=== PATIENT | male | born 1985 | race African-American/Black ===

== ENCOUNTER 2023-06-18 18:13 | Inpatient (IN) | payer OTHER, SELFPAY ==
[2023-06-18] MEDS ORDERED: Ondansetron PF 4 MG/2 ML Vial IVP PRN (21:08)
[2023-06-18] MEDS ORDERED: Labetalol HCl 100 MG/20 ML VIAL SLOW IVP PRN (21:08)
[2023-06-18] MEDS ORDERED: Fentanyl BOLUS 250 ML IVPB PRN (21:15)
[2023-06-18] MEDS ORDERED: Propofol BOLUS 1,000 MG/100 ML VIAL IV PRN (21:15)
[2023-06-18] MEDS ORDERED: Ventilator Sedation Protocol 1 EACH FS SCH (21:15)
[2023-06-18] MEDS ORDERED: DISCONTINUE PREVIOUS NARCOTIC PAIN MEDICATIONS AND BENZODIAZEPINES FS SCH (21:15)
[2023-06-18] MEDS ORDERED: Glucagon 1 MG/ML KIT IM PRN (21:18)
[2023-06-18] MEDS ORDERED: Dextrose 5% in Water 1,000 ML IV PRN (21:18)
[2023-06-18] MEDS ORDERED: HumaLOG 300 UNITS/3 ML VIAL SC PRN (21:18)
[2023-06-18] MEDS ORDERED: Dextrose 50% Abboject 50 ML SYRINGE SLOW IVP PRN (21:18)
[2023-06-18] MEDS ORDERED: hydrALAZINE 20 MG/ML VIAL SLOW IVP PRN (21:20)
[2023-06-18 21:35] LABS: Actual Bicarbonate (HCO3a) 18.3 mEq/L (22-28); Base Excess (BEa) -9.6 mEq/L (-2.0 to +3.0); CO2 Tension 47.3 mmHg (35.0-45.0); Calcium, Ionized (arterial) 1.15 mmol/L (1.12-1.30); Carboxyhemoglobin (COHb) 1.4 gm% (0.0-3.0); Hematocrit-ABG 44 % (42.0-52.0)
[2023-06-18 21:38] LABS: O2 Tension (PaO2), arterial 57.1 mmHg (80.0-100.0); pH, Arterial 7.206 (7.35-7.45)
[2023-06-18 21:39] LABS: Puncture Site RRA
[2023-06-18 21:41] LABS: ALV-art Gradient 596.775 mmHg (0-20)
[2023-06-18] MEDS ORDERED: Sodium Bicarb 50 MEQ/50 ML VIAL IVP SCH (21:45)
[2023-06-18] MEDS ORDERED: Lactated Ringer's 500 ML IV SCH (22:00)
[2023-06-18] MEDS ORDERED: Fentanyl CADD 100 ML ONE (22:07)
[2023-06-18 22:11] LABS: #Basophils 0.1 thou/uL (0.0-0.2); #Eosinphils 0.1 thou/uL (0.0-0.7); #Monocytes 1.2 thou/uL (0.11-0.59); #Neutrophils 11.1 thou/uL (1.40-6.50); %Basophils 0.4 % (0.0-1.0); %Eosinophils 0.5 % (0.0-10.0); %Monocytes 8.4 % (0.0-10.0); %Neutrophils 77.4 % (42.0-75.0); Hematocrit 42.9 % (42.0-52.0); Hemoglobin 13.9 g/dL (14.0-18.0); Mean Corpuscular HGB CONC 32.4 g/dL (32.0-36.0); Mean Corpuscular Hemoglobin 29.1 pg (27.0-31.0); Mean Corpuscular Volume 89.7 fl (78.0-98.0); Mean Platelet Volume 9.3 fL (7.4-10.4); Platelet Count 269 10x3/uL (130-400); Red Blood Cell (RBC) Count 4.78 mill/uL (4.70-6.10); White Blood Cell (WBC) Count 14.3 10x3/uL (4.8-10.8)
[2023-06-18] MEDS: Fentanyl CADD 100 ML IV SCH (22:19)
[2023-06-18] MEDS ORDERED: SODIUM BICARBONATE IV SCH (22:30)
[2023-06-18] MEDS ORDERED: STERILE WATER IV SCH (22:30)
[2023-06-18] MEDS ORDERED: Sodium Bicarbonate 50 MEQ in Sodium Chloride 0.45% 1,000 ML IV SCH (22:30)
[2023-06-18 22:33] LABS: Lactic Acid 4.5 mmol/L (0.5-2.2)
[2023-06-18 22:34] LABS: ALT (SGPT) 49 U/L (8-55); AST (SGOT) 74 U/L (5-34); Albumin 4.1 g/dL (3.5-5.0); Alkaline Phosphatase 76 U/L (40-110); Anion Gap 16 mmol/L (10-20); BUN (Urea Nitrogen) 28 mg/dL (8.9-20.6); Bilirubin, Total 0.3 mg/dL (0.2-1.2); Calc. Creatinine Clearance 56 mL/min (70-130); Calcium 8.7 mg/dL (7.8-10.44); Carbon Dioxide 23 mmol/L (22-29); Chloride 104 mmol/L (98-107); Estimated GFR 19; Globulin 3.6 g/dL (2.4-3.5); Glucose 135 mg/dL (70-105); Potassium 4.2 mmol/L (3.5-5.1); Protein, Total 7.7 g/dL (6.0-8.3); Sodium 139 mmol/L (136-145)
[2023-06-18 23:44] LABS: Actual Bicarbonate (HCO3a) 26.3 mEq/L (22-28); Base Excess (BEa) -0.4 mEq/L (-2.0 to +3.0); CO2 Tension 51.2 mmHg (35.0-45.0); Calcium, Ionized (arterial) 1.11 mmol/L (1.12-1.30); Hematocrit-ABG 42 % (42.0-52.0); Hemoglobin (Hb) 14.2 g/dL (14.0-18.0); O2 Tension (PaO2), arterial 90.9 mmHg (80.0-100.0); Potassium - ABG Lab 4.04 mmol/L (3.70-5.30); pH, Arterial 7.329 (7.35-7.45)
[2023-06-18 23:45] LABS: Puncture Site RRA
[2023-06-19] MEDS: niCARdipine 25 MG in Sodium Chloride 0.9% 250 ML 250 ML IVPB PRN ×4 (00:02→16:06)
[2023-06-19] MEDS: Propofol 1,000 MG/100 ML VIAL IV PRN ×9 (00:03→23:04)
[2023-06-19] MEDS ORDERED: Lactated Ringer's 1,000 ML IV SCH (01:00)
[2023-06-19] MEDS ORDERED: Cefepime 2 GM VIAL ONE (02:51)
[2023-06-19] MEDS ORDERED: Cefepime 2 GM in Sodium Chloride 0.9% 100 ML IVPB SCH (03:00)
[2023-06-19] MEDS ORDERED: VANCOMYCIN 2 GRAM/500 ML BAG 2 GM in Premix Bag 1 BAG IVPB SCH (03:00)
[2023-06-19] MEDS: Lactated Ringer's 1,000 ML IV SCH ×2 (03:17→08:37)
[2023-06-19 03:56] LABS: #Eosinphils 0.1 thou/uL (0.0-0.7); #Monocytes 0.7 thou/uL (0.11-0.59); #Neutrophils 7.6 thou/uL (1.40-6.50); %Basophils 0.2 % (0.0-1.0); %Eosinophils 0.5 % (0.0-10.0); %Lymphocytes 11.4 % (21.0-51.0); %Monocytes 7.7 % (0.0-10.0); %Neutrophils 79.6 % (42.0-75.0); Hematocrit 38.7 % (42.0-52.0); Hemoglobin 12.7 g/dL (14.0-18.0); Mean Corpuscular HGB CONC 32.8 g/dL (32.0-36.0); Mean Corpuscular Hemoglobin 29.2 pg (27.0-31.0); Mean Platelet Volume 9.3 fL (7.4-10.4); Platelet Count 234 10x3/uL (130-400); RBC Distribution Width 13.1 % (11.5-14.5); Red Blood Cell (RBC) Count 4.35 mill/uL (4.70-6.10); White Blood Cell (WBC) Count 9.6 10x3/uL (4.8-10.8)
[2023-06-19 07:25] LABS: Actual Bicarbonate (HCO3a) 23.9 mEq/L (22-28); Base Excess (BEa) -1.8 mEq/L (-2.0 to +3.0); CO2 Tension 43.8 mmHg (35.0-45.0); Calcium, Ionized (arterial) 1.07 mmol/L (1.12-1.30); Carboxyhemoglobin (COHb) 0.7 gm% (0.0-3.0); Hematocrit-ABG 41 % (42.0-52.0); Hemoglobin (Hb) 13.8 g/dL (14.0-18.0); O2 Tension (PaO2), arterial 74.1 mmHg (80.0-100.0); Potassium - ABG Lab 3.92 mmol/L (3.70-5.30); pH, Arterial 7.354 (7.35-7.45)
[2023-06-19 07:28] LABS: Puncture Site LRA
[2023-06-19 08:13] LABS: Anion Gap 20 mmol/L (10-20); BUN (Urea Nitrogen) 29 mg/dL (8.9-20.6); Calc. Creatinine Clearance 63 mL/min (70-130); Calcium 8.5 mg/dL (7.8-10.44); Carbon Dioxide 27 mmol/L (22-29); Chloride 100 mmol/L (98-107); Estimated GFR 22; Glucose 107 mg/dL (70-105); Lactic Acid 3.3 mmol/L (0.5-2.2); Magnesium 2.5 mg/dL (1.6-2.6); Sodium 143 mmol/L (136-145)
[2023-06-19] MEDS: levETIRAcetam 500 MG/5 ML VIAL SLOW IVP SCH ×2 (08:38→20:14)
[2023-06-19] MEDS: Famotidine/PF 20 mg/2ml Vial SLOW IVP SCH (08:38)
[2023-06-19] MEDS ORDERED: levETIRAcetam 500 MG TAB PO SCH (09:00)
[2023-06-19 09:27] LABS: Clarity Cloudy (Clear); Leukocyte Unable to Interpret Leu/uL (Negative); Nitrite Unable to Interpret (Negative); pH, Urine 5.2 (5.0-9.0)
[2023-06-19 09:28] LABS: Bilirubin Unable to Interpret (Negative); Blood, Urine Unable to Interpret (Negative); Glucose, Urine (Dipstick) Unable to Interpret mg/dL (Negative); Ketone, Urine Unable to Interpret mg/dL (Negative); Protein, Urine (Dipstick) Unable to Interpret mg/dL (Neg-Trace); Urobilinogen UNABLE TO INTERPRET mg/dL (Less than 2)
[2023-06-19 09:39] LABS: Bacteria/HPF Rare-Few HPF (None Seen); CAUTI Indications for Culture Alt mental st,lethar; RBC/HPF Greater than 50 HPF (0-3); Squamous Epithelial None Seen HPF (0-3)
[2023-06-19 09:40] LABS: Triple Phosphate Crystal Rare HPF (None Seen)
[2023-06-19 09:41] LABS: Urine Culture Reflex No No
[2023-06-19 10:36] LABS: Phosphorus 4.5 mg/dL (2.3-4.7)
[2023-06-19] MEDS ORDERED: Furosemide 40 MG/4 ML VIAL SLOW IVP SCH (10:45)
[2023-06-19] MEDS: Cefepime 1 GM in Sodium Chloride 0.9% 100 ML IVPB SCH (15:13)
[2023-06-19] MEDS: Lorazepam 2 MG/ML VIAL SLOW IVP PRN (16:03)
[2023-06-19] MEDS: Acetaminophen 325 MG TAB PO PRN ×2 (16:39→23:04)
[2023-06-19] MEDS: Fentanyl CADD 100 ML IV SCH (20:13)
[2023-06-19] MEDS ORDERED: niCARdipine 50 MG in Sodium Chloride 0.9% 250 ML 250 ML IVPB SCH (21:15)
[2023-06-19] MEDS ORDERED: niCARdipine 50 MG, Admixture Fee 1 EACH in Sodium Chloride 0.9% 250 ML 230 ML IV SCH (21:30)
[2023-06-19] MEDS: Labetalol HCl 100 MG/20 ML VIAL SLOW IVP PRN (22:50)
[2023-06-20] MEDS: Lorazepam 2 MG/ML VIAL SLOW IVP PRN ×5 (00:21→23:05)
[2023-06-20] MEDS: Labetalol HCl 100 MG/20 ML VIAL SLOW IVP PRN ×3 (02:23→11:35)
[2023-06-20] MEDS: Propofol 1,000 MG/100 ML VIAL IV PRN ×4 (02:24→22:20)
[2023-06-20] MEDS: Cefepime 1 GM in Sodium Chloride 0.9% 100 ML IVPB SCH ×2 (02:24→15:03)
[2023-06-20] MEDS: Vancomycin 1 GM in Premix Bag 1 BAG IVPB SCH (03:25)
[2023-06-20 04:24] LABS: #Eosinphils 0.1 thou/uL (0.0-0.7); #Monocytes 0.8 thou/uL (0.11-0.59); #Neutrophils 6.6 thou/uL (1.40-6.50); %Basophils 0.3 % (0.0-1.0); %Eosinophils 1.2 % (0.0-10.0); %Lymphocytes 20.5 % (21.0-51.0); %Neutrophils 69.6 % (42.0-75.0); Hemoglobin 11.9 g/dL (14.0-18.0); Mean Corpuscular HGB CONC 32.2 g/dL (32.0-36.0); Mean Corpuscular Hemoglobin 28.9 pg (27.0-31.0); Mean Corpuscular Volume 89.8 fl (78.0-98.0); Mean Platelet Volume 9.6 fL (7.4-10.4); Platelet Count 189 10x3/uL (130-400); RBC Distribution Width 13.8 % (11.5-14.5); Red Blood Cell (RBC) Count 4.12 mill/uL (4.70-6.10); White Blood Cell (WBC) Count 9.5 10x3/uL (4.8-10.8)
[2023-06-20] MEDS: Morphine 2 MG/ML VIAL SLOW IVP PRN (04:50)
[2023-06-20 04:58] LABS: Chloride 102 mmol/L (98-107); Potassium 3.4 mmol/L (3.5-5.1); Sodium 137 mmol/L (136-145)
[2023-06-20 04:59] LABS: Anion Gap 13 mmol/L (10-20); BUN (Urea Nitrogen) 32 mg/dL (8.9-20.6); Calc. Creatinine Clearance 55 mL/min (70-130); Calcium 8.3 mg/dL (7.8-10.44); Carbon Dioxide 25 mmol/L (22-29); Estimated GFR 18; Glucose 101 mg/dL (70-105)
[2023-06-20] MEDS: Acetaminophen 325 MG TAB PO PRN ×3 (06:42→21:41)
[2023-06-20 06:58] LABS: CO2 Tension 45.9 mmHg (35.0-45.0); pH, Arterial 7.367 (7.35-7.45)
[2023-06-20 06:59] LABS: Actual Bicarbonate (HCO3a) 25.8 mEq/L (22-28); Base Excess (BEa) 0.1 mEq/L (-2.0 to +3.0); Carboxyhemoglobin (COHb) 0.9 gm% (0.0-3.0); Hematocrit-ABG 38 % (42.0-52.0); Potassium - ABG Lab 3.56 mmol/L (3.70-5.30)
[2023-06-20 07:13] LABS: O2 Tension (PaO2), arterial 42.3 mmHg (80.0-100.0)
[2023-06-20 07:14] LABS: ALV-art Gradient 185.525 mmHg (0-20); Puncture Site LRA
[2023-06-20] MEDS: levETIRAcetam 500 MG/5 ML VIAL SLOW IVP SCH ×2 (08:30→20:16)
[2023-06-20] MEDS: Famotidine/PF 20 mg/2ml Vial SLOW IVP SCH (08:30)
[2023-06-20] MEDS: niCARdipine 50 MG, Admixture Fee 1 EACH in Sodium Chloride 0.9% 250 ML 230 ML IV SCH ×3 (14:57→23:54)
[2023-06-20] MEDS: Scopolamine 1.5 mg/72 hour Patch TOP SCH (20:16)
[2023-06-21 00:22] LABS: Creatinine, Urine 147.35 mg/dL (63-166); Microalbumin Urine 29.3 mg/dL (0.5-50.0); Microalbumin/Creat Ratio 198.8 mg/g (Less than 30)
[2023-06-21 00:23] LABS: Creatinine, Urine 143.96 mg/dL (63-166)
[2023-06-21] MEDS: Propofol 1,000 MG/100 ML VIAL IV PRN ×9 (01:23→22:20)
[2023-06-21] MEDS: Vancomycin 1 GM in Premix Bag 1 BAG IVPB SCH (01:23)
[2023-06-21] MEDS: Lorazepam 2 MG/ML VIAL SLOW IVP PRN ×5 (02:41→22:34)
[2023-06-21] MEDS: Cefepime 1 GM in Sodium Chloride 0.9% 100 ML IVPB SCH ×2 (02:41→14:46)
[2023-06-21] MEDS: niCARdipine 50 MG, Admixture Fee 1 EACH in Sodium Chloride 0.9% 250 ML 230 ML IV SCH ×5 (05:20→22:21)
[2023-06-21 07:48] LABS: Actual Bicarbonate (HCO3a) 25.6 mEq/L (22-28); Base Excess (BEa) 2.2 mEq/L (-2.0 to +3.0); CO2 Tension 36.1 mmHg (35.0-45.0); Calcium, Ionized (arterial) 1.19 mmol/L (1.12-1.30); Carboxyhemoglobin (COHb) 0.5 gm% (0.0-3.0); Hematocrit-ABG 43 % (42.0-52.0); Hemoglobin (Hb) 14.6 g/dL (14.0-18.0); Potassium - ABG Lab 3.69 mmol/L (3.70-5.30); pH, Arterial 7.469 (7.35-7.45)
[2023-06-21 07:54] LABS: Puncture Site LRA
[2023-06-21 07:55] LABS: ALV-art Gradient 261.375 mmHg (0-20)
[2023-06-21] MEDS: levETIRAcetam 500 MG/5 ML VIAL SLOW IVP SCH ×2 (08:31→19:59)
[2023-06-21] MEDS: Acetaminophen 325 MG TAB PO PRN ×3 (08:31→22:21)
[2023-06-21] MEDS: Famotidine/PF 20 mg/2ml Vial SLOW IVP SCH (08:32)
[2023-06-21 08:37] LABS: #Eosinphils 0.2 thou/uL (0.0-0.7); #Monocytes 0.7 thou/uL (0.11-0.59); #Neutrophils 6.2 thou/uL (1.40-6.50); %Basophils 0.3 % (0.0-1.0); %Eosinophils 2.8 % (0.0-10.0); %Lymphocytes 15.8 % (21.0-51.0); %Monocytes 7.8 % (0.0-10.0); %Neutrophils 72.3 % (42.0-75.0); Hematocrit 34.9 % (42.0-52.0); Hemoglobin 11.4 g/dL (14.0-18.0); Mean Corpuscular HGB CONC 32.7 g/dL (32.0-36.0); Mean Corpuscular Hemoglobin 29.1 pg (27.0-31.0); Platelet Count 201 10x3/uL (130-400); RBC Distribution Width 13.8 % (11.5-14.5); Red Blood Cell (RBC) Count 3.92 mill/uL (4.70-6.10); White Blood Cell (WBC) Count 8.6 10x3/uL (4.8-10.8)
[2023-06-21 09:04] LABS: Albumin 3.3 g/dL (3.5-5.0); Anion Gap 13 mmol/L (10-20); BUN (Urea Nitrogen) 26 mg/dL (8.9-20.6); Calc. Creatinine Clearance 75 mL/min (70-130); Calcium 9.2 mg/dL (7.8-10.44); Carbon Dioxide 24 mmol/L (22-29); Chloride 106 mmol/L (98-107); Estimated GFR 24; Glucose 128 mg/dL (70-105); Phosphorus 2.3 mg/dL (2.3-4.7); Potassium 3.5 mmol/L (3.5-5.1); Sodium 139 mmol/L (136-145)
[2023-06-21] MEDS: Labetalol HCl 100 MG/20 ML VIAL SLOW IVP PRN ×3 (16:38→22:33)
[2023-06-21] MEDS ORDERED: Dexmedetomidine In 0.9 % NaCl 100 ML IVPB SCH (22:45)
[2023-06-21] MEDS ORDERED: Dexmedetomidine 400 MCG, Admixture Fee 1 EACH in Sodium Chloride 0.9% 96 ML IVPB SCH (23:00)
[2023-06-22] MEDS: Vancomycin 1 GM in Premix Bag 1 BAG IVPB SCH (01:22)
[2023-06-22] MEDS: Propofol 1,000 MG/100 ML VIAL IV PRN ×9 (01:22→22:30)
[2023-06-22] MEDS: Dexmedetomidine 1,000 MCG, Admixture Fee 1 EACH in Sodium Chloride 0.9% 250 ML 240 ML IVPB SCH ×2 (03:57→15:15)
[2023-06-22] MEDS: niCARdipine 50 MG, Admixture Fee 1 EACH in Sodium Chloride 0.9% 250 ML 230 ML IV SCH ×5 (03:57→18:10)
[2023-06-22] MEDS: Cefepime 1 GM in Sodium Chloride 0.9% 100 ML IVPB SCH ×2 (03:57→13:58)
[2023-06-22 05:16] LABS: #Basophils 0.1 thou/uL (0.0-0.2); #Eosinphils 0.4 thou/uL (0.0-0.7); #Monocytes 0.8 thou/uL (0.11-0.59); #Neutrophils 4.9 thou/uL (1.40-6.50); %Basophils 0.6 % (0.0-1.0); %Lymphocytes 19.7 % (21.0-51.0); %Monocytes 9.9 % (0.0-10.0); %Neutrophils 63.8 % (42.0-75.0); Hematocrit 32.9 % (42.0-52.0); Hemoglobin 10.7 g/dL (14.0-18.0); Mean Corpuscular HGB CONC 32.5 g/dL (32.0-36.0); Mean Corpuscular Hemoglobin 29.1 pg (27.0-31.0); Mean Corpuscular Volume 89.4 fl (78.0-98.0); Mean Platelet Volume 10.5 fL (7.4-10.4); Platelet Count 204 10x3/uL (130-400); RBC Distribution Width 13.8 % (11.5-14.5); Red Blood Cell (RBC) Count 3.68 mill/uL (4.70-6.10); White Blood Cell (WBC) Count 7.8 10x3/uL (4.8-10.8)
[2023-06-22 06:28] LABS: Anion Gap 15 mmol/L (10-20); BUN (Urea Nitrogen) 24 mg/dL (8.9-20.6); Calc. Creatinine Clearance 86 mL/min (70-130); Calcium 9.4 mg/dL (7.8-10.44); Carbon Dioxide 23 mmol/L (22-29); Chloride 107 mmol/L (98-107); Estimated GFR 29; Glucose 133 mg/dL (70-105); Potassium 3.8 mmol/L (3.5-5.1); Sodium 141 mmol/L (136-145)
[2023-06-22] MEDS: levETIRAcetam 500 MG/5 ML VIAL SLOW IVP SCH ×2 (09:20→20:18)
[2023-06-22] MEDS: Famotidine/PF 20 mg/2ml Vial SLOW IVP SCH (09:20)
[2023-06-22 09:41] LABS: CKMB 0.7 ng/mL (0-6.6)
[2023-06-22] MEDS ORDERED: Amlodipine 10 MG TAB PO SCH ×2 (10:48→11:00)
[2023-06-22] MEDS: Enalaprilat Dihydrate 1.25 MG/ML VIAL SLOW IVP SCH ×2 (11:17→17:16)
[2023-06-22] MEDS: Lorazepam 2 MG/ML VIAL SLOW IVP PRN ×3 (13:45→20:20)
[2023-06-22] MEDS: Acetaminophen 325 MG TAB PO PRN ×2 (14:13→20:28)
[2023-06-22] MEDS: Ampicillin/Sulbactam 3 GM in Sodium Chloride 0.9% 100 ML IVPB SCH (18:10)
[2023-06-22] MEDS: Labetalol HCl 100 MG/20 ML VIAL SLOW IVP PRN (19:34)
[2023-06-23] MEDS: Enalaprilat Dihydrate 1.25 MG/ML VIAL SLOW IVP SCH ×5 (00:46→23:07)
[2023-06-23] MEDS: Ampicillin/Sulbactam 3 GM in Sodium Chloride 0.9% 100 ML IVPB SCH ×5 (00:47→23:07)
[2023-06-23] MEDS: Labetalol HCl 100 MG/20 ML VIAL SLOW IVP PRN (01:12)
[2023-06-23] MEDS: niCARdipine 50 MG, Admixture Fee 1 EACH in Sodium Chloride 0.9% 250 ML 230 ML IV SCH ×6 (01:30→17:16)
[2023-06-23 01:57] LABS: Anion Gap 13 mmol/L (10-20); BUN (Urea Nitrogen) 24 mg/dL (8.9-20.6); Calc. Creatinine Clearance 98 mL/min (70-130); Calcium 9.6 mg/dL (7.8-10.44); Carbon Dioxide 24 mmol/L (22-29); Chloride 109 mmol/L (98-107); Estimated GFR 34; Glucose 128 mg/dL (70-105); Magnesium 1.7 mg/dL (1.6-2.6); Potassium 3.9 mmol/L (3.5-5.1); Sodium 142 mmol/L (136-145)
[2023-06-23] MEDS: Lorazepam 2 MG/ML VIAL SLOW IVP PRN ×4 (02:10→20:11)
[2023-06-23] MEDS: Dexmedetomidine 1,000 MCG, Admixture Fee 1 EACH in Sodium Chloride 0.9% 250 ML 240 ML IVPB SCH ×3 (02:49→17:16)
[2023-06-23 05:06] LABS: #Basophils 0.1 thou/uL (0.0-0.2); #Eosinphils 0.5 thou/uL (0.0-0.7); #Monocytes 0.9 thou/uL (0.11-0.59); %Eosinophils 6.3 % (0.0-10.0); %Lymphocytes 18.3 % (21.0-51.0); %Monocytes 10.9 % (0.0-10.0); %Neutrophils 62.3 % (42.0-75.0); Hematocrit 34.7 % (42.0-52.0); Hemoglobin 11.1 g/dL (14.0-18.0); Mean Corpuscular Hemoglobin 28.9 pg (27.0-31.0); Mean Corpuscular Volume 90.4 fl (78.0-98.0); Mean Platelet Volume 10.5 fL (7.4-10.4); Platelet Count 228 10x3/uL (130-400); Red Blood Cell (RBC) Count 3.84 mill/uL (4.70-6.10); White Blood Cell (WBC) Count 8.1 10x3/uL (4.8-10.8)
[2023-06-23 05:25] LABS: Vancomycin, Trough 5.3 ug/mL
[2023-06-23 05:58] LABS: Anion Gap 16 mmol/L (10-20); BUN (Urea Nitrogen) 24 mg/dL (8.9-20.6); Calc. Creatinine Clearance 102 mL/min (70-130); Calcium 9.6 mg/dL (7.8-10.44); Carbon Dioxide 19 mmol/L (22-29); Chloride 109 mmol/L (98-107); Estimated GFR 36; Glucose 114 mg/dL (70-105); Potassium 4.3 mmol/L (3.5-5.1); Sodium 140 mmol/L (136-145)
[2023-06-23] MEDS: Propofol 1,000 MG/100 ML VIAL IV PRN ×8 (06:37→23:09)
[2023-06-23 07:16] LABS: Actual Bicarbonate (HCO3a) 20.9 mEq/L (22-28); Base Excess (BEa) -2.1 mEq/L (-2.0 to +3.0); CO2 Tension 30.8 mmHg (35.0-45.0); Calcium, Ionized (arterial) 1.21 mmol/L (1.12-1.30); Carboxyhemoglobin (COHb) 0.2 gm% (0.0-3.0); Hematocrit-ABG 38 % (42.0-52.0); O2 Tension (PaO2), arterial 67.8 mmHg (80.0-100.0); Potassium - ABG Lab 3.93 mmol/L (3.70-5.30)
[2023-06-23 07:30] LABS: Puncture Site RBA
[2023-06-23] MEDS: Famotidine/PF 20 mg/2ml Vial SLOW IVP SCH (08:48)
[2023-06-23] MEDS: Amlodipine 10 MG TAB PO SCH (08:48)
[2023-06-23] MEDS: levETIRAcetam 500 MG/5 ML VIAL SLOW IVP SCH ×2 (08:48→20:06)
[2023-06-23] MEDS ORDERED: Amlodipine 10 MG TAB PO SCH (09:00)
[2023-06-23] MEDS: hydrALAZINE 20 MG/ML VIAL SLOW IVP PRN (15:23)
[2023-06-23] MEDS: Scopolamine 1.5 mg/72 hour Patch TOP SCH (20:06)
[2023-06-24] MEDS: niCARdipine 50 MG, Admixture Fee 1 EACH in Sodium Chloride 0.9% 250 ML 230 ML IV SCH ×5 (01:34→22:24)
[2023-06-24] MEDS: Propofol 1,000 MG/100 ML VIAL IV PRN ×9 (01:34→22:24)
[2023-06-24] MEDS: Lorazepam 2 MG/ML VIAL SLOW IVP PRN ×4 (01:35→22:24)
[2023-06-24 03:54] LABS: #Basophils 0.1 thou/uL (0.0-0.2); #Eosinphils 0.6 thou/uL (0.0-0.7); #Monocytes 0.7 thou/uL (0.11-0.59); #Neutrophils 4.5 thou/uL (1.40-6.50); %Basophils 0.8 % (0.0-1.0); %Eosinophils 7.3 % (0.0-10.0); %Lymphocytes 20.7 % (21.0-51.0); %Monocytes 9.7 % (0.0-10.0); %Neutrophils 59.4 % (42.0-75.0); Hematocrit 33.4 % (42.0-52.0); Mean Corpuscular HGB CONC 32.9 g/dL (32.0-36.0); Mean Corpuscular Hemoglobin 28.9 pg (27.0-31.0); Mean Corpuscular Volume 87.9 fl (78.0-98.0); Mean Platelet Volume 10.4 fL (7.4-10.4); Platelet Count 252 10x3/uL (130-400); RBC Distribution Width 13.9 % (11.5-14.5); White Blood Cell (WBC) Count 7.6 10x3/uL (4.8-10.8)
[2023-06-24 04:22] LABS: Anion Gap 15 mmol/L (10-20); BUN (Urea Nitrogen) 25 mg/dL (8.9-20.6); Calc. Creatinine Clearance 102 mL/min (70-130); Calcium 9.5 mg/dL (7.8-10.44); Carbon Dioxide 21 mmol/L (22-29); Chloride 108 mmol/L (98-107); Estimated GFR 36; Glucose 113 mg/dL (70-105); Potassium 3.8 mmol/L (3.5-5.1); Sodium 140 mmol/L (136-145)
[2023-06-24] MEDS: Ampicillin/Sulbactam 3 GM in Sodium Chloride 0.9% 100 ML IVPB SCH ×4 (05:03→22:59)
[2023-06-24] MEDS: Enalaprilat Dihydrate 1.25 MG/ML VIAL SLOW IVP SCH ×4 (05:04→22:59)
[2023-06-24 07:24] LABS: Actual Bicarbonate (HCO3a) 22.5 mEq/L (22-28); Base Excess (BEa) -0.1 mEq/L (-2.0 to +3.0); CO2 Tension 31.2 mmHg (35.0-45.0); Carboxyhemoglobin (COHb) 0.3 gm% (0.0-3.0); Hematocrit-ABG 46 % (42.0-52.0); Hemoglobin (Hb) 15.6 g/dL (14.0-18.0); O2 Tension (PaO2), arterial 55.4 mmHg (80.0-100.0); Potassium - ABG Lab 3.68 mmol/L (3.70-5.30); pH, Arterial 7.475 (7.35-7.45)
[2023-06-24 07:25] LABS: Puncture Site LRA]
[2023-06-24] MEDS: Amlodipine 10 MG TAB PO SCH (07:49)
[2023-06-24] MEDS: levETIRAcetam 500 MG/5 ML VIAL SLOW IVP SCH ×2 (07:49→20:22)
[2023-06-24] MEDS: Famotidine/PF 20 mg/2ml Vial SLOW IVP SCH (07:49)
[2023-06-24] MEDS: Famotidine 20 MG TAB PO SCH ×2 (08:07→20:22)
[2023-06-24] MEDS: hydrALAZINE 20 MG/ML VIAL SLOW IVP PRN ×2 (09:03→15:10)
[2023-06-24] MEDS ORDERED: Lidocaine 2% PF 5 ML VIAL ONE (12:33)
[2023-06-24] MEDS ORDERED: Bupivacaine HCl 0.5%/Epinephrine 1:200,000/PF 30 ml Vial ONE (12:33)
[2023-06-24] MEDS ORDERED: Midazolam HCl 2 mg/2 ml Vial ONE ×2 (12:37→12:44)
[2023-06-24] MEDS ORDERED: fentaNYL 50 mcg/mL 1 mL Vial ONE (12:44)
[2023-06-24] MEDS ORDERED: PROPOFOL 200 MG/20 ML VIAL ONE (13:05)
[2023-06-24] MEDS ORDERED: Rocuronium Bromide 10 MG/ML (10ML VIAL) ONE (13:05)
[2023-06-24] MEDS ORDERED: Propofol 1,000 MG/100 ML VIAL IV ONE (13:26)
[2023-06-24] MEDS: Dexmedetomidine 1,000 MCG, Admixture Fee 1 EACH in Sodium Chloride 0.9% 250 ML 240 ML IVPB SCH ×2 (16:05→22:24)
[2023-06-25] MEDS: Propofol 1,000 MG/100 ML VIAL IV PRN ×12 (01:19→23:50)
[2023-06-25] MEDS: Lorazepam 2 MG/ML VIAL SLOW IVP PRN ×6 (01:19→16:39)
[2023-06-25] MEDS: niCARdipine 50 MG, Admixture Fee 1 EACH in Sodium Chloride 0.9% 250 ML 230 ML IV SCH ×3 (04:14→10:17)
[2023-06-25] MEDS: Dexmedetomidine 1,000 MCG, Admixture Fee 1 EACH in Sodium Chloride 0.9% 250 ML 240 ML IVPB SCH ×4 (04:14→22:33)
[2023-06-25 04:28] LABS: #Basophils 0.1 thou/uL (0.0-0.2); #Eosinphils 0.5 thou/uL (0.0-0.7); #Monocytes 0.8 thou/uL (0.11-0.59); %Basophils 0.7 % (0.0-1.0); %Eosinophils 5.1 % (0.0-10.0); %Lymphocytes 14.9 % (21.0-51.0); %Monocytes 9.2 % (0.0-10.0); %Neutrophils 67.3 % (42.0-75.0); Hematocrit 34.3 % (42.0-52.0); Hemoglobin 11.4 g/dL (14.0-18.0); Mean Corpuscular HGB CONC 33.2 g/dL (32.0-36.0); Mean Corpuscular Hemoglobin 29.5 pg (27.0-31.0); Mean Corpuscular Volume 88.6 fl (78.0-98.0); Mean Platelet Volume 10.6 fL (7.4-10.4); Platelet Count 279 10x3/uL (130-400); RBC Distribution Width 13.5 % (11.5-14.5); Red Blood Cell (RBC) Count 3.87 mill/uL (4.70-6.10)
[2023-06-25 04:46] LABS: Anion Gap 11 mmol/L (10-20); BUN (Urea Nitrogen) 26 mg/dL (8.9-20.6); Calc. Creatinine Clearance 113 mL/min (70-130); Calcium 8.8 mg/dL (7.8-10.44); Carbon Dioxide 20 mmol/L (22-29); Chloride 112 mmol/L (98-107); Estimated GFR 39; Glucose 104 mg/dL (70-105); Potassium 3.8 mmol/L (3.5-5.1); Sodium 139 mmol/L (136-145)
[2023-06-25] MEDS: Ampicillin/Sulbactam 3 GM in Sodium Chloride 0.9% 100 ML IVPB SCH ×4 (05:18→23:36)
[2023-06-25] MEDS: Enalaprilat Dihydrate 1.25 MG/ML VIAL SLOW IVP SCH ×3 (05:18→17:58)
[2023-06-25] MEDS: hydrALAZINE 20 MG/ML VIAL SLOW IVP PRN ×5 (05:35→16:04)
[2023-06-25 07:23] LABS: Base Excess (BEa) -2.2 mEq/L (-2.0 to +3.0); Calcium, Ionized (arterial) 1.11 mmol/L (1.12-1.30); Carboxyhemoglobin (COHb) 0.1 gm% (0.0-3.0); Hematocrit-ABG 36 % (42.0-52.0); Hemoglobin (Hb) 12.3 g/dL (14.0-18.0); O2 Tension (PaO2), arterial 70.1 mmHg (80.0-100.0); Potassium - ABG Lab 3.61 mmol/L (3.70-5.30); pH, Arterial 7.523 (7.35-7.45)
[2023-06-25 07:24] LABS: ALV-art Gradient 328.075 mmHg (0-20); CO2 Tension 23.7 mmHg (35.0-45.0); Puncture Site LRA
[2023-06-25] MEDS: levETIRAcetam 500 MG/5 ML VIAL SLOW IVP SCH ×2 (07:42→20:20)
[2023-06-25] MEDS: Famotidine 20 MG TAB PO SCH ×2 (07:43→20:20)
[2023-06-25] MEDS: Amlodipine 10 MG TAB PO SCH (07:43)
[2023-06-25] MEDS ORDERED: Fentanyl CADD 0 ML ONE (07:51)
[2023-06-25] MEDS: Labetalol HCl 100 MG/20 ML VIAL SLOW IVP PRN ×5 (08:02→23:07)
[2023-06-25] MEDS: Morphine 2 MG/ML VIAL SLOW IVP PRN (08:09)
[2023-06-25] MEDS ORDERED: Furosemide 40 MG/4 ML VIAL SLOW IVP SCH (09:30)
[2023-06-25] MEDS ORDERED: Losartan/Hydrochlorothiazide 100 mg/25 mg Tablet PER TUBE SCH (09:30)
[2023-06-25] MEDS ORDERED: Metoprolol Tartrate 100 MG TAB PER TUBE SCH (09:45)
[2023-06-25] MEDS ORDERED: Doxazosin 2 MG TAB PO SCH (12:09)
[2023-06-25] MEDS: Acetaminophen 325 MG TAB PO PRN ×2 (13:34→23:07)
[2023-06-25] MEDS: Metoprolol Tartrate 100 MG TAB PER TUBE SCH (20:20)
[2023-06-26] MEDS: Enalaprilat Dihydrate 1.25 MG/ML VIAL SLOW IVP SCH ×2 (00:18→05:02)
[2023-06-26] MEDS: Morphine 2 MG/ML VIAL SLOW IVP PRN (00:54)
[2023-06-26] MEDS: Dexmedetomidine 1,000 MCG, Admixture Fee 1 EACH in Sodium Chloride 0.9% 250 ML 240 ML IVPB SCH ×5 (00:54→22:01)
[2023-06-26] MEDS: Lorazepam 2 MG/ML VIAL SLOW IVP PRN ×3 (00:54→17:14)
[2023-06-26] MEDS: niCARdipine 50 MG, Admixture Fee 1 EACH in Sodium Chloride 0.9% 250 ML 230 ML IV SCH ×5 (00:54→22:26)
[2023-06-26] MEDS: Propofol 1,000 MG/100 ML VIAL IV PRN ×11 (00:55→23:03)
[2023-06-26 04:44] LABS: Anion Gap 18 mmol/L (10-20); BUN (Urea Nitrogen) 31 mg/dL (8.9-20.6); Calc. Creatinine Clearance 103 mL/min (70-130); Calcium 8.7 mg/dL (7.8-10.44); Carbon Dioxide 17 mmol/L (22-29); Chloride 110 mmol/L (98-107); Estimated GFR 35; Glucose 104 mg/dL (70-105); Magnesium 1.7 mg/dL (1.6-2.6); Phosphorus 5.6 mg/dL (2.3-4.7); Potassium 3.7 mmol/L (3.5-5.1); Sodium 141 mmol/L (136-145)
[2023-06-26] MEDS: Ampicillin/Sulbactam 3 GM in Sodium Chloride 0.9% 100 ML IVPB SCH ×4 (05:02→23:39)
[2023-06-26] MEDS: Labetalol HCl 100 MG/20 ML VIAL SLOW IVP PRN ×4 (06:05→18:52)
[2023-06-26 07:25] LABS: Actual Bicarbonate (HCO3a) 19.2 mEq/L (22-28); Base Excess (BEa) -3.3 mEq/L (-2.0 to +3.0); CO2 Tension 26.8 mmHg (35.0-45.0); Calcium, Ionized (arterial) 1.13 mmol/L (1.12-1.30); Carboxyhemoglobin (COHb) 0.3 gm% (0.0-3.0); Hematocrit-ABG 31 % (42.0-52.0); Hemoglobin (Hb) 10.5 g/dL (14.0-18.0); O2 Tension (PaO2), arterial 69.3 mmHg (80.0-100.0); Potassium - ABG Lab 3.62 mmol/L (3.70-5.30); pH, Arterial 7.474 (7.35-7.45)
[2023-06-26 07:28] LABS: Puncture Site LRA
[2023-06-26] MEDS: Amlodipine 10 MG TAB PO SCH (08:02)
[2023-06-26] MEDS: levETIRAcetam 500 MG/5 ML VIAL SLOW IVP SCH ×2 (08:02→21:27)
[2023-06-26] MEDS: Metoprolol Tartrate 100 MG TAB PER TUBE SCH ×2 (08:03→21:27)
[2023-06-26] MEDS: Famotidine 20 MG TAB PO SCH ×2 (08:03→21:26)
[2023-06-26 08:52] LABS: #Basophils 0.1 thou/uL (0.0-0.2); #Eosinphils 0.4 thou/uL (0.0-0.7); #Monocytes 1.2 thou/uL (0.11-0.59); #Neutrophils 7.6 thou/uL (1.40-6.50); %Basophils 0.8 % (0.0-1.0); %Eosinophils 3.3 % (0.0-10.0); %Lymphocytes 17.7 % (21.0-51.0); %Monocytes 10.1 % (0.0-10.0); %Neutrophils 63.3 % (42.0-75.0); Hemoglobin 11.4 g/dL (14.0-18.0); Mean Corpuscular HGB CONC 31.7 g/dL (32.0-36.0); Mean Corpuscular Hemoglobin 28.5 pg (27.0-31.0); Mean Platelet Volume 9.9 fL (7.4-10.4); Platelet Count 310 10x3/uL (130-400); White Blood Cell (WBC) Count 11.9 10x3/uL (4.8-10.8)
[2023-06-26] MEDS ORDERED: Losartan/Hydrochlorothiazide 100 mg/25 mg Tablet PER TUBE SCH (09:00)
[2023-06-26] MEDS ORDERED: NIFEdipine XL 60 MG TAB PO SCH (11:00)
[2023-06-26] MEDS ORDERED: Minoxidil 2.5 MG TAB PO SCH (11:45)
[2023-06-26] MEDS ORDERED: hydrALAZINE 25 MG TAB PER TUBE SCH (15:00)
[2023-06-26] MEDS: hydrALAZINE 25 MG TAB PER TUBE SCH ×2 (15:19→21:27)
[2023-06-26] MEDS: NIFEdipine 10 MG CAP PER TUBE SCH ×2 (15:36→21:31)
[2023-06-26] MEDS: Scopolamine 1.5 mg/72 hour Patch TOP SCH (19:57)
[2023-06-26] MEDS ORDERED: NIFEdipine XL 30 MG TAB PO SCH (21:00)
[2023-06-26] MEDS: Atorvastatin Calcium 40 MG TAB PER TUBE SCH (21:26)
[2023-06-27] MEDS: Labetalol HCl 100 MG/20 ML VIAL SLOW IVP PRN ×3 (00:49→21:52)
[2023-06-27] MEDS: Propofol 1,000 MG/100 ML VIAL IV PRN ×10 (01:24→23:16)
[2023-06-27] MEDS: hydrALAZINE 20 MG/ML VIAL SLOW IVP PRN ×2 (02:20→05:32)
[2023-06-27] MEDS: Dexmedetomidine 1,000 MCG, Admixture Fee 1 EACH in Sodium Chloride 0.9% 250 ML 240 ML IVPB SCH ×3 (02:20→20:28)
[2023-06-27] MEDS: niCARdipine 50 MG, Admixture Fee 1 EACH in Sodium Chloride 0.9% 250 ML 230 ML IV SCH ×2 (02:44→06:22)
[2023-06-27 03:57] LABS: #Basophils 0.1 thou/uL (0.0-0.2); #Eosinphils 0.4 thou/uL (0.0-0.7); #Monocytes 1.1 thou/uL (0.11-0.59); #Neutrophils 8.6 thou/uL (1.40-6.50); %Basophils 0.6 % (0.0-1.0); %Eosinophils 3.3 % (0.0-10.0); %Lymphocytes 13.2 % (21.0-51.0); %Monocytes 8.9 % (0.0-10.0); %Neutrophils 69.4 % (42.0-75.0); Hematocrit 33.1 % (42.0-52.0); Hemoglobin 11.1 g/dL (14.0-18.0); Mean Corpuscular HGB CONC 33.5 g/dL (32.0-36.0); Mean Corpuscular Hemoglobin 29.1 pg (27.0-31.0); Mean Platelet Volume 9.9 fL (7.4-10.4); Platelet Count 325 10x3/uL (130-400); RBC Distribution Width 14.1 % (11.5-14.5); Red Blood Cell (RBC) Count 3.81 mill/uL (4.70-6.10); White Blood Cell (WBC) Count 12.3 10x3/uL (4.8-10.8)
[2023-06-27 04:20] LABS: Anion Gap 19 mmol/L (10-20); BUN (Urea Nitrogen) 33 mg/dL (8.9-20.6); Calc. Creatinine Clearance 103 mL/min (70-130); Calcium 9.2 mg/dL (7.8-10.44); Carbon Dioxide 16 mmol/L (22-29); Chloride 110 mmol/L (98-107); Estimated GFR 36; Glucose 121 mg/dL (70-105); Potassium 3.7 mmol/L (3.5-5.1); Sodium 141 mmol/L (136-145)
[2023-06-27 04:35] LABS: Mean Corpuscular Volume 86.9 fl (78.0-98.0)
[2023-06-27] MEDS: Ampicillin/Sulbactam 3 GM in Sodium Chloride 0.9% 100 ML IVPB SCH ×2 (06:31→19:48)
[2023-06-27] MEDS: Lorazepam 2 MG/ML VIAL SLOW IVP PRN ×2 (07:21→13:44)
[2023-06-27 08:06] LABS: Actual Bicarbonate (HCO3a) 17.4 mEq/L (22-28); Base Excess (BEa) -5.3 mEq/L (-2.0 to +3.0); CO2 Tension 26.4 mmHg (35.0-45.0); Calcium, Ionized (arterial) 1.18 mmol/L (1.12-1.30); Carboxyhemoglobin (COHb) 0.2 gm% (0.0-3.0); Hematocrit-ABG 35 % (42.0-52.0); Potassium - ABG Lab 3.78 mmol/L (3.70-5.30); pH, Arterial 7.438 (7.35-7.45)
[2023-06-27 08:12] LABS: O2 Tension (PaO2), arterial 58.9 mmHg (80.0-100.0); Puncture Site RRA
[2023-06-27] MEDS ORDERED: Amlodipine 10 MG TAB PO SCH (09:00)
[2023-06-27] MEDS: Morphine 2 MG/ML VIAL SLOW IVP PRN ×2 (09:31→12:47)
[2023-06-27] MEDS: levETIRAcetam 500 MG/5 ML VIAL SLOW IVP SCH ×2 (09:35→20:47)
[2023-06-27] MEDS: hydrALAZINE 25 MG TAB PER TUBE SCH ×3 (09:35→20:47)
[2023-06-27] MEDS: Metoprolol Tartrate 100 MG TAB PER TUBE SCH ×2 (09:36→20:48)
[2023-06-27] MEDS: Minoxidil 2.5 MG TAB PO SCH (09:36)
[2023-06-27] MEDS: Famotidine 20 MG TAB PO SCH ×2 (09:36→20:48)
[2023-06-27] MEDS: NIFEdipine 10 MG CAP PER TUBE SCH ×3 (09:44→22:15)
[2023-06-27] MEDS: cefTRIAXone\\ROCEPHIN 2 GM in Sodium Chloride 0.9% 100 ML IVPB SCH (14:12)
[2023-06-27] MEDS: Acetaminophen 325 MG TAB PO PRN (14:31)
[2023-06-27] MEDS: Atorvastatin Calcium 40 MG TAB PER TUBE SCH (20:47)
[2023-06-28] MEDS: Dexmedetomidine 1,000 MCG, Admixture Fee 1 EACH in Sodium Chloride 0.9% 250 ML 240 ML IVPB SCH ×5 (00:07→23:51)
[2023-06-28] MEDS: Propofol 1,000 MG/100 ML VIAL IV PRN ×12 (01:09→22:51)
[2023-06-28] MEDS: Labetalol HCl 100 MG/20 ML VIAL SLOW IVP PRN (04:17)
[2023-06-28] MEDS: hydrALAZINE 20 MG/ML VIAL SLOW IVP PRN ×3 (04:55→05:35)
[2023-06-28 06:51] LABS: #Basophils 0.1 thou/uL (0.0-0.2); #Eosinphils 0.5 thou/uL (0.0-0.7); #Monocytes 1.2 thou/uL (0.11-0.59); #Neutrophils 8.6 thou/uL (1.40-6.50); %Basophils 0.6 % (0.0-1.0); %Eosinophils 3.7 % (0.0-10.0); %Lymphocytes 13.1 % (21.0-51.0); %Monocytes 9.6 % (0.0-10.0); %Neutrophils 70.2 % (42.0-75.0); Hematocrit 39.1 % (42.0-52.0); Hemoglobin 11.8 g/dL (14.0-18.0); Mean Corpuscular HGB CONC 30.2 g/dL (32.0-36.0); Mean Corpuscular Hemoglobin 28.4 pg (27.0-31.0); Mean Corpuscular Volume 94.2 fl (78.0-98.0); Mean Platelet Volume 10.5 fL (7.4-10.4); Platelet Count 297 10x3/uL (130-400); RBC Distribution Width 14.2 % (11.5-14.5); Red Blood Cell (RBC) Count 4.15 mill/uL (4.70-6.10); White Blood Cell (WBC) Count 12.3 10x3/uL (4.8-10.8)
[2023-06-28] MEDS: Lorazepam 2 MG/ML VIAL SLOW IVP PRN ×3 (07:45→17:42)
[2023-06-28 07:50] LABS: Anion Gap 21 mmol/L (10-20); BUN (Urea Nitrogen) 37 mg/dL (8.9-20.6); Calc. Creatinine Clearance 106 mL/min (70-130); Calcium 9.4 mg/dL (7.8-10.44); Carbon Dioxide 12 mmol/L (22-29); Chloride 114 mmol/L (98-107); Estimated GFR 37; Glucose 106 mg/dL (70-105); Potassium 4.9 mmol/L (3.5-5.1); Sodium 142 mmol/L (136-145)
[2023-06-28 07:53] LABS: Actual Bicarbonate (HCO3a) 18.6 mEq/L (22-28); Base Excess (BEa) -5.5 mEq/L (-2.0 to +3.0); CO2 Tension 31.7 mmHg (35.0-45.0); Calcium, Ionized (arterial) 1.23 mmol/L (1.12-1.30); Carboxyhemoglobin (COHb) 0.3 gm% (0.0-3.0); Hematocrit-ABG 36 % (42.0-52.0); Hemoglobin (Hb) 12.1 g/dL (14.0-18.0); O2 Tension (PaO2), arterial 90.2 mmHg (80.0-100.0); Potassium - ABG Lab 3.93 mmol/L (3.70-5.30); pH, Arterial 7.386 (7.35-7.45)
[2023-06-28 07:56] LABS: Puncture Site RRA
[2023-06-28 08:01] LABS: ALV-art Gradient 297.975 mmHg (0-20)
[2023-06-28] MEDS: NIFEdipine 10 MG CAP PER TUBE SCH ×3 (08:14→21:47)
[2023-06-28] MEDS: Famotidine 20 MG TAB PO SCH ×2 (08:15→21:44)
[2023-06-28] MEDS: hydrALAZINE 25 MG TAB PER TUBE SCH ×3 (08:15→21:44)
[2023-06-28] MEDS: Acetaminophen 325 MG TAB PO PRN (08:15)
[2023-06-28] MEDS: Metoprolol Tartrate 100 MG TAB PER TUBE SCH ×2 (08:15→21:44)
[2023-06-28] MEDS: levETIRAcetam 500 MG/5 ML VIAL SLOW IVP SCH ×2 (08:15→21:44)
[2023-06-28] MEDS: Minoxidil 2.5 MG TAB PO SCH (08:16)
[2023-06-28] MEDS: fentaNYL 75 mcg/hour Patch TD SCH (09:38)
[2023-06-28] MEDS: Sodium Bicarbonate Tab 325 MG TAB PER TUBE SCH ×2 (09:40→21:44)
[2023-06-28] MEDS: cefTRIAXone\\ROCEPHIN 2 GM in Sodium Chloride 0.9% 100 ML IVPB SCH ×2 (15:45→15:49)
[2023-06-28] MEDS: Atorvastatin Calcium 40 MG TAB PER TUBE SCH (21:44)
[2023-06-29] MEDS: Propofol 1,000 MG/100 ML VIAL IV PRN ×8 (01:04→23:41)
[2023-06-29] MEDS: Labetalol HCl 100 MG/20 ML VIAL SLOW IVP PRN ×4 (02:52→14:48)
[2023-06-29] MEDS: hydrALAZINE 20 MG/ML VIAL SLOW IVP PRN ×2 (03:41→10:10)
[2023-06-29] MEDS: Dexmedetomidine 1,000 MCG, Admixture Fee 1 EACH in Sodium Chloride 0.9% 250 ML 240 ML IVPB SCH ×4 (04:45→21:35)
[2023-06-29] MEDS: niCARdipine 50 MG, Admixture Fee 1 EACH in Sodium Chloride 0.9% 250 ML 230 ML IV SCH (06:18)
[2023-06-29 06:26] LABS: #Basophils 0.1 thou/uL (0.0-0.2); #Eosinphils 0.6 thou/uL (0.0-0.7); #Monocytes 1.2 thou/uL (0.11-0.59); #Neutrophils 8.7 thou/uL (1.40-6.50); %Basophils 0.7 % (0.0-1.0); %Eosinophils 4.8 % (0.0-10.0); %Lymphocytes 14.6 % (21.0-51.0); %Monocytes 9.4 % (0.0-10.0); Hematocrit 36.5 % (42.0-52.0); Hemoglobin 11.5 g/dL (14.0-18.0); Mean Corpuscular HGB CONC 31.5 g/dL (32.0-36.0); Mean Corpuscular Hemoglobin 28.8 pg (27.0-31.0); Mean Corpuscular Volume 91.5 fl (78.0-98.0); Mean Platelet Volume 10.3 fL (7.4-10.4); Platelet Count 299 10x3/uL (130-400); RBC Distribution Width 14.2 % (11.5-14.5); Red Blood Cell (RBC) Count 3.99 mill/uL (4.70-6.10); White Blood Cell (WBC) Count 12.8 10x3/uL (4.8-10.8)
[2023-06-29 06:52] LABS: Anion Gap 16 mmol/L (10-20); BUN (Urea Nitrogen) 39 mg/dL (8.9-20.6); Calc. Creatinine Clearance 110 mL/min (70-130); Calcium 9.2 mg/dL (7.8-10.44); Carbon Dioxide 14 mmol/L (22-29); Chloride 115 mmol/L (98-107); Estimated GFR 39; Glucose 110 mg/dL (70-105); Potassium 4.1 mmol/L (3.5-5.1); Sodium 141 mmol/L (136-145)
[2023-06-29] MEDS: Lorazepam 2 MG/ML VIAL SLOW IVP PRN (07:05)
[2023-06-29] MEDS: Minoxidil 2.5 MG TAB PO SCH (08:08)
[2023-06-29] MEDS: Sodium Bicarbonate Tab 325 MG TAB PER TUBE SCH ×2 (08:08→20:21)
[2023-06-29] MEDS: Metoprolol Tartrate 100 MG TAB PER TUBE SCH ×2 (08:08→20:21)
[2023-06-29] MEDS: Famotidine 20 MG TAB PO SCH ×2 (08:10→20:21)
[2023-06-29] MEDS: hydrALAZINE 25 MG TAB PER TUBE SCH ×4 (08:10→20:20)
[2023-06-29] MEDS: levETIRAcetam 500 MG/5 ML VIAL SLOW IVP SCH ×2 (08:11→20:20)
[2023-06-29] MEDS: NIFEdipine 10 MG CAP PER TUBE SCH ×3 (08:13→20:58)
[2023-06-29] MEDS: Acetaminophen 325 MG TAB PO PRN ×2 (08:17→20:21)
[2023-06-29] MEDS: Gabapentin 300 MG CAP PER TUBE SCH ×2 (09:26→20:20)
[2023-06-29] MEDS: Lorazepam 1 MG TAB PER TUBE SCH ×3 (10:10→20:20)
[2023-06-29] MEDS: cefTRIAXone\\ROCEPHIN 2 GM in Sodium Chloride 0.9% 100 ML IVPB SCH (14:34)
[2023-06-29] MEDS: Atorvastatin Calcium 40 MG TAB PER TUBE SCH (20:21)
[2023-06-30] MEDS: Dexmedetomidine 1,000 MCG, Admixture Fee 1 EACH in Sodium Chloride 0.9% 250 ML 240 ML IVPB SCH ×4 (02:22→22:35)
[2023-06-30] MEDS: Labetalol HCl 100 MG/20 ML VIAL SLOW IVP PRN ×3 (03:11→20:26)
[2023-06-30] MEDS: hydrALAZINE 20 MG/ML VIAL SLOW IVP PRN (04:08)
[2023-06-30] MEDS: Propofol 1,000 MG/100 ML VIAL IV PRN ×5 (06:05→22:37)
[2023-06-30 07:00] LABS: #Basophils 0.1 thou/uL (0.0-0.2); #Eosinphils 0.6 thou/uL (0.0-0.7); #Monocytes 1.3 thou/uL (0.11-0.59); #Neutrophils 9.9 thou/uL (1.40-6.50); %Lymphocytes 14.2 % (21.0-51.0); %Monocytes 9.3 % (0.0-10.0); %Neutrophils 68.9 % (42.0-75.0); Anion Gap 20 mmol/L (10-20); BUN (Urea Nitrogen) 41 mg/dL (8.9-20.6); Calc. Creatinine Clearance 104 mL/min (70-130); Carbon Dioxide 10 mmol/L (22-29); Chloride 118 mmol/L (98-107); Estimated GFR 37; Glucose 108 mg/dL (70-105); Hematocrit 36.3 % (42.0-52.0); Hemoglobin 11.6 g/dL (14.0-18.0); Mean Corpuscular Hemoglobin 28.6 pg (27.0-31.0); Mean Corpuscular Volume 89.4 fl (78.0-98.0); Platelet Count 312 10x3/uL (130-400); Potassium 4.6 mmol/L (3.5-5.1); RBC Distribution Width 14.3 % (11.5-14.5); Red Blood Cell (RBC) Count 4.06 mill/uL (4.70-6.10); Sodium 143 mmol/L (136-145); White Blood Cell (WBC) Count 14.4 10x3/uL (4.8-10.8)
[2023-06-30] MEDS ORDERED: Dextrose 5% in Water 1,000 ML IV SCH (09:00)
[2023-06-30] MEDS: Famotidine 20 MG TAB PO SCH ×2 (09:16→20:13)
[2023-06-30] MEDS: hydrALAZINE 25 MG TAB PER TUBE SCH ×4 (09:16→20:12)
[2023-06-30] MEDS: Metoprolol Tartrate 100 MG TAB PER TUBE SCH ×2 (09:17→20:13)
[2023-06-30] MEDS: Lorazepam 1 MG TAB PER TUBE SCH ×3 (09:17→20:13)
[2023-06-30] MEDS: Minoxidil 2.5 MG TAB PO SCH (09:18)
[2023-06-30] MEDS: Acetaminophen 325 MG TAB PO PRN ×2 (09:18→20:12)
[2023-06-30] MEDS: Gabapentin 300 MG CAP PER TUBE SCH ×2 (09:18→20:12)
[2023-06-30] MEDS: Sodium Bicarbonate Tab 325 MG TAB PER TUBE SCH ×2 (09:18→20:12)
[2023-06-30] MEDS: levETIRAcetam 500 MG/5 ML VIAL SLOW IVP SCH ×2 (09:19→20:13)
[2023-06-30] MEDS: NIFEdipine 10 MG CAP PER TUBE SCH ×3 (09:58→21:05)
[2023-06-30] MEDS ORDERED: Sodium Bicarbonate 150 MEQ in Dextrose 5% in Water 1,000 ML IV SCH (14:00)
[2023-06-30] MEDS: cefTRIAXone\\ROCEPHIN 2 GM in Sodium Chloride 0.9% 100 ML IVPB SCH (15:09)
[2023-06-30] MEDS: Atorvastatin Calcium 40 MG TAB PER TUBE SCH (20:13)
[2023-07-01 03:36] LABS: #Basophils 0.1 thou/uL (0.0-0.2); #Eosinphils 0.4 thou/uL (0.0-0.7); #Neutrophils 8.3 thou/uL (1.40-6.50); %Basophils 0.7 % (0.0-1.0); %Eosinophils 3.7 % (0.0-10.0); %Lymphocytes 14.4 % (21.0-51.0); %Monocytes 8.3 % (0.0-10.0); %Neutrophils 70.8 % (42.0-75.0); Hemoglobin 10.4 g/dL (14.0-18.0); Mean Corpuscular HGB CONC 31.5 g/dL (32.0-36.0); Mean Corpuscular Hemoglobin 28.6 pg (27.0-31.0); Mean Corpuscular Volume 90.7 fl (78.0-98.0); Mean Platelet Volume 9.8 fL (7.4-10.4); Platelet Count 361 10x3/uL (130-400); RBC Distribution Width 14.4 % (11.5-14.5); Red Blood Cell (RBC) Count 3.64 mill/uL (4.70-6.10); White Blood Cell (WBC) Count 11.8 10x3/uL (4.8-10.8)
[2023-07-01 03:57] LABS: Anion Gap 15 mmol/L (10-20); BUN (Urea Nitrogen) 37 mg/dL (8.9-20.6); Calc. Creatinine Clearance 109 mL/min (70-130); Calcium 8.9 mg/dL (7.8-10.44); Carbon Dioxide 17 mmol/L (22-29); Chloride 117 mmol/L (98-107); Estimated GFR 39; Glucose 116 mg/dL (70-105); Sodium 145 mmol/L (136-145)
[2023-07-01] MEDS: Labetalol HCl 100 MG/20 ML VIAL SLOW IVP PRN ×4 (05:26→19:39)
[2023-07-01] MEDS: Propofol 1,000 MG/100 ML VIAL IV PRN (06:13)
[2023-07-01] MEDS: hydrALAZINE 20 MG/ML VIAL SLOW IVP PRN ×4 (06:33→20:19)
[2023-07-01] MEDS: Dexmedetomidine 1,000 MCG, Admixture Fee 1 EACH in Sodium Chloride 0.9% 250 ML 240 ML IVPB SCH ×5 (06:40→21:36)
[2023-07-01] MEDS: levETIRAcetam 500 MG/5 ML VIAL SLOW IVP SCH ×2 (07:35→20:26)
[2023-07-01] MEDS: Metoprolol Tartrate 100 MG TAB PER TUBE SCH ×2 (07:36→20:24)
[2023-07-01] MEDS: Lorazepam 1 MG TAB PER TUBE SCH ×3 (07:36→20:24)
[2023-07-01] MEDS: Sodium Bicarbonate Tab 325 MG TAB PER TUBE SCH ×2 (07:36→20:26)
[2023-07-01] MEDS: Gabapentin 300 MG CAP PER TUBE SCH ×2 (07:36→20:24)
[2023-07-01] MEDS: Famotidine 20 MG TAB PO SCH ×2 (07:37→20:24)
[2023-07-01] MEDS: NIFEdipine 10 MG CAP PER TUBE SCH (07:37)
[2023-07-01] MEDS: hydrALAZINE 25 MG TAB PER TUBE SCH (07:37)
[2023-07-01] MEDS: fentaNYL 75 mcg/hour Patch TD SCH (07:38)
[2023-07-01] MEDS ORDERED: NIFEdipine 10 MG CAP PER TUBE SCH (08:15)
[2023-07-01] MEDS ORDERED: hydrALAZINE 25 MG TAB PER TUBE SCH (08:15)
[2023-07-01] MEDS: Minoxidil 2.5 MG TAB PER TUBE SCH ×2 (08:49→20:25)
[2023-07-01] MEDS ORDERED: Minoxidil 2.5 MG TAB PO SCH (09:00)
[2023-07-01] MEDS: cefTRIAXone\\ROCEPHIN 2 GM in Sodium Chloride 0.9% 100 ML IVPB SCH (13:49)
[2023-07-01] MEDS: Atorvastatin Calcium 40 MG TAB PER TUBE SCH (20:25)
[2023-07-01] MEDS: Acetaminophen 325 MG TAB PO PRN (20:26)
[2023-07-02] MEDS: Dexmedetomidine 1,000 MCG, Admixture Fee 1 EACH in Sodium Chloride 0.9% 250 ML 240 ML IVPB SCH ×3 (02:30→06:17)
[2023-07-02 04:25] LABS: Hematocrit 35.2 % (42.0-52.0); Hemoglobin 10.9 g/dL (14.0-18.0); Mean Corpuscular Volume 90.5 fl (78.0-98.0); Mean Platelet Volume 10.3 fL (7.4-10.4); Platelet Count 400 10x3/uL (130-400); RBC Distribution Width 14.3 % (11.5-14.5); Red Blood Cell (RBC) Count 3.89 mill/uL (4.70-6.10); White Blood Cell (WBC) Count 12.4 10x3/uL (4.8-10.8)
[2023-07-02 04:26] LABS: Delete Auto Diff?? YES; Manual Diff?? YES
[2023-07-02 04:58] LABS: Band 5 % (5-11); Burr Cells SLIGHT = 2-5 cells HPF (0-1); Eosinophils 3 % (0-10); Lymphocytes 13 % (21-51); Macrocytosis SLIGHT = 6-15 cells HPF (0-5); Monocytes 8 % (0-10); Myelocyte 1 % (0-0); Neutrophil 68 % (42-75); Platelet Adequacy Comment Platelets Normal; Polychromasia SLIGHT = 2-3 cells HPF (0-2); Reactive Lymphocytes 3 % (0-10); Total Cell Count 104
[2023-07-02 05:07] LABS: Anion Gap 14 mmol/L (10-20); BUN (Urea Nitrogen) 35 mg/dL (8.9-20.6); Calc. Creatinine Clearance 108 mL/min (70-130); Calcium 9.1 mg/dL (7.8-10.44); Carbon Dioxide 18 mmol/L (22-29); Chloride 121 mmol/L (98-107); Estimated GFR 40; Glucose 105 mg/dL (70-105); Potassium 3.9 mmol/L (3.5-5.1); Sodium 149 mmol/L (136-145)
[2023-07-02] MEDS: hydrALAZINE 20 MG/ML VIAL SLOW IVP PRN ×3 (06:17→10:29)
[2023-07-02] MEDS: hydrALAZINE 25 MG TAB PER TUBE SCH ×2 (07:55→12:44)
[2023-07-02] MEDS: Lorazepam 1 MG TAB PER TUBE SCH ×2 (07:55→13:52)
[2023-07-02] MEDS: Gabapentin 300 MG CAP PER TUBE SCH (07:55)
[2023-07-02] MEDS: Famotidine 20 MG TAB PO SCH (07:56)
[2023-07-02] MEDS: Metoprolol Tartrate 100 MG TAB PER TUBE SCH (07:56)
[2023-07-02] MEDS ORDERED: Haloperidol 5 MG TAB PER TUBE PRN (08:23)
[2023-07-02] MEDS ORDERED: NIFEdipine 10 MG CAP PER TUBE SCH (09:00)
[2023-07-02] MEDS ORDERED: Scopolamine 1.5 mg/72 hour Patch TD SCH (09:00)
[2023-07-02] MEDS ORDERED: cloNIDine 0.1mg/24 Hour PATCH TD SCH (09:00)
[2023-07-02] MEDS ORDERED: Minoxidil 10 MG TAB PER TUBE SCH (09:00)
[2023-07-02] MEDS ORDERED: levETIRAcetam 500 mg/5 ml Oral Solution PER TUBE SCH (09:00)
[2023-07-02 09:43] VITALS: BMI 56.7
[2023-07-02 12:56] VITALS: TEMP 99.5
[2023-07-02 13:22] VITALS: BP 126/62
== END 2023-07-02 15:30 | disposition short-term general hospital (02) | DRG 4 ==
LOC: CCU 18:13
PROVIDERS: ADMIT Internal Medicine; ATTEND Internal Medicine Critical Care Medicine
PROC: 5A1955Z Respiratory Ventilation, Greater than 96 Consecutive Hours (ICD-10-PCS; 2023-06-18)
PROC: 4A10X4Z Monitoring of Central Nervous Electrical Activity, External Approach (ICD-10-PCS; 2023-06-20)
PROC: 4A033R1 Measurement of Arterial Saturation, Peripheral, Percutaneous Approach (ICD-10-PCS; 2023-06-23)
PROC: 0B110Z4 Bypass Trachea to Cutaneous, Open Approach (ICD-10-PCS; principal; 2023-06-24)
PROC: 5A1955Z Respiratory Ventilation, Greater than 96 Consecutive Hours (ICD-10-PCS; 2023-06-24)
PROC: 0DH63UZ Insertion of Feeding Device into Stomach, Percutaneous Approach (ICD-10-PCS; 2023-06-24)
PROC: 4A10X4Z Monitoring of Central Nervous Electrical Activity, External Approach (ICD-10-PCS; 2023-06-24)
DX: I61.9 Nontraumatic intracerebral hemorrhage, unspecified (principal); I46.9 Cardiac arrest, cause unspecified; J96.01 Acute respiratory failure with hypoxia; J96.02 Acute respiratory failure with hypercapnia; I16.9 Hypertensive crisis, unspecified; I16.1 Hypertensive emergency; N17.9 Acute kidney failure, unspecified; E87.20 Acidosis, unspecified; E87.4 Mixed disorder of acid-base balance; J98.11 Atelectasis; E46 Unspecified protein-calorie malnutrition; Z68.43 Body mass index [BMI] 50.0-59.9, adult; G47.33 Obstructive sleep apnea (adult) (pediatric); E66.01 Morbid (severe) obesity due to excess calories; I12.9 Hypertensive chronic kidney disease with stage 1 through stage 4 chronic kidney disease, or unspecified chronic kidney disease; F17.210 Nicotine dependence, cigarettes, uncomplicated; R56.9 Unspecified convulsions; D72.829 Elevated white blood cell count, unspecified; E11.22 Type 2 diabetes mellitus with diabetic chronic kidney disease; E87.6 Hypokalemia; N18.30 Chronic kidney disease, stage 3 unspecified; J04.10 Acute tracheitis without obstruction; R13.10 Dysphagia, unspecified
CPT/HCPCS: 36415; 36416; 36600; 70450; 71045; 76770; 80048; 80069; 80202; 81001; 82010; 82043; 82088; 82553; 82570; 82805; 83605; 83735; 83880; 84100; 84156; 84244; 84484; 85025; 87040; 87070; 87086; 87205; 93005; 93010; 93306; 94002; 94003; 94640; 95712; 95819; 95957; A4217; A7521; C1713; C1889; J0295; J0360; J0692; J0696; J1940; J1953; J2001; J2060; J2250; J2272; J2704; J3010; J3370; J3370-JW; J3490; J7050; J7070; J7120; S0028